=== PATIENT | female | born 1980 | race Caucasian/White ===

== ENCOUNTER 2019-02-07 01:12 | Emergency (ER) | payer MEDICAID ==
[~2019-02-07] VITALS: Ht 154.9 cm; Wt 92.0 kg
[2019-02-07 02:57] LABS: CLARITY URINE CLOUDY (CLEAR); COLOR URINE YELLOW (YELLOW); KETONES URINE NEGATIVE (NEGATIVE); LEUKOCYTE ESTERASE URINE NEGATIVE (NEGATIVE); NITRITE URINE NEGATIVE (NEGATIVE); OCCULT BLOOD URINE NEGATIVE (NEGATIVE); PH URINE 7.5 (4.5-8.0); PROTEIN URINE NEGATIVE (NEGATIVE); SPECIFIC GRAVITY URINE 1.013 (1.005-1.030); UROBILINOGEN URINE 0.2 E.U./dL (0.2-1.0)
[2019-02-07] MEDS ORDERED: KETOROLAC 60MG/2ML VIAL IM ONE (04:15)
[2019-02-07] MEDS ORDERED: DIPHENHYDRAMINE 25MG CAPSULE PO ONE (04:15)
[2019-02-07] MEDS ORDERED: METOCLOPRAMIDE HCL 10MG TABLET PO ONE (04:15)
[2019-02-07 05:49] VITALS: BP 146/84
== END 2019-02-07 05:54 | disposition home or self-care (01) ==
LOC: ER 02:18
DX: B34.9 Viral infection, unspecified (principal)
CPT/HCPCS: 81003; 81025; 96372; 99283; J1885; J8597; Q0163

== ENCOUNTER 2019-06-18 15:58 | Emergency (ER) | payer MEDICAID ==
[~2019-06-18] VITALS: Ht 157.5 cm; Wt 89.0 kg
[2019-06-18 19:35] VITALS: BP 139/79
== END 2019-06-18 19:39 | disposition home or self-care (01) ==
LOC: ER 15:58
DX: J02.8 Acute pharyngitis due to other specified organisms (principal); R04.2 Hemoptysis; R03.0 Elevated blood-pressure reading, without diagnosis of hypertension
CPT/HCPCS: 71045; 81025; 99283